=== PATIENT | female | born 1945 ===

== ENCOUNTER → 2016-08-27 | Outpatient (CLI) | payer OTHER ==
--- NOTE | 2016-08-27 12:50 | DIAGNOSTIC IMAGING REPORT ---
MRI LEFT KNEE NO CONTRAST CLINICAL HISTORY: LEFT KNEE PAIN COMPARISON STUDY: No previous studies for comparison. FINDINGS: Imaging was performed in sagittal, coronal, and axial planes. The patellar retinacular structures appear intact. The quadriceps and patellar tendons appear intact. The anterior and posterior crucial ligaments appear intact. No tears a lateral meniscus are visualized. There is a tear involving the posterior horn the medial meniscus with a bucket-handle component. The lateral collateral ligament and medial collateral ligaments appear intact. IMPRESSION: Complex tear involving the posterior horn of the medial meniscus with a bucket-handle component Electronically signed by: Roe Plaza M.D. 08/27/2016 12:48 PM Dictated Date/Time: 08/27/2016 12:46 PM
== END | disposition home or self-care (01) ==
LOC: C.MRIBC 11:41
PROVIDERS: ATTEND Orthopaedic Surgery
DX: S83.212A Bucket-handle tear of medial meniscus, current injury, left knee, initial encounter (principal); X58.XXXA Exposure to other specified factors, initial encounter